=== PATIENT | male | born 1975 | race Caucasian/White ===

== ENCOUNTER 2024-02-13 09:43 | Outpatient (CLI) | payer BC, SELFPAY ==
--- NOTE | 2024-02-13 10:58 | CT_ITS ---
WS: [id number] LDCT LUNG CANCER SCREENING TECHNIQUE: Noncontrast CT of the chest with coronal and sagittal reformatted images. CLINICAL INFORMATION: HX OF TOBACCO USE COMPARISON: None. DLP: 100.58 mGy.cm DIvol: Mean CTDIvol: 2.20 (mGy) All CT scans at [facility] use at least one of these dose optimization techniques: automat ed exposure control; mA and/or kV adjustment per patient size (includes targeted exams where dose is matched to clinical indication); or iterative reconstruction. FINDINGS: 3 mm noncalcified nodule RIGHT middle lobe. 5 mm nodule RIGHT upper lobe along the fissure. Slight subsegmental atelectasis in the lung bases. 6.7 mm nodule in the lingula. No comparisons. Rec ommend 6-month follow-up. 5 mm nodule LEFT lower lobe. Additional 5 mm nodule LEFT lower lobe near the diaphragm. 4 mm nodule i n the LEFT fissure. 3 mm nodule RIGHT lower lobe laterally. Normal caliber thoracic aorta. No mediastinal or hilar lymphadenopathy. No axillary lymphadenopathy. Tiny esophageal hiatal hernia. Adrenal glands are normal. CT/CT lung screening [id number] IMPRESSION: 6.7 mm nodule in the lingula along the LEFT heart border. Recommend 6-month fol low-up. LUNG-RADS: 3-Probably Benign FOLLOW UP: 6 Month LDCT
== END 2024-02-13 09:44 | disposition home or self-care (01) ==
LOC: RAD 09:43
PROVIDERS: Family Provider Family Medicine; Visit Provider Family Medicine
DX: Z12.2 Encounter for screening for malignant neoplasm of respiratory organs (principal); R91.8 Other nonspecific abnormal finding of lung field; Z87.891 Personal history of nicotine dependence
CPT/HCPCS: 71271

== ENCOUNTER 2024-03-10 06:00 | Day surgery (SDC) | payer BC, SELFPAY ==
--- NOTE | 2024-03-09 16:32 | P.ANESASSM_ITS ---
Pre-Anesthetic Assessment Height/Weight: Height 5 ft 10 in Operation Date: 03/10/24 07:00 Proposed Procedures p Colonoscopy 06670, G0121, Z12.11(Not Applicable) - Santana Alvarado DO Anesthetic Plan Other: No prior issues with anesthesia Completed bowel prep History of hypertension on losartan?HCTZ test? Plan for MAC anesthetic Medications/Allergies Home Medications Medication Instructions Recorded Confirmed Last Taken Type ezetimibe 10 mg tablet 10 mg PO DAILY 02/02/24 03/08/24 03/07/24 History losartan 100 1 tab PO ONCE 02/02/24 03/08/24 03/07/24 History mg-hydrochlorothiazide 25 mg tablet varenicline 1 mg tablet (Chantix) 1 mg PO BID 02/02/24 03/08/24 03/08/24 History Allergies Allergy/AdvReac Type Severity Reaction Status Date / Time Penicillins Allergy Unknown Verified 03/08/24 09:13 [facility] Anesthesia Family History Family/Other Cancer breast, brain, lung Hypertension Diabetes Social History Smoking and tobacco/nicotine status: former use of tobacco/nicotine (2 months former) Alcohol intake: never Data Anesthesia Cardiac Studies: No Data to Display
[2024-03-10 06:15] VITALS: BP 129/89; PULSE 105; RESP 18; TEMP 36.9; O2SAT 96; BMI 31.5
[2024-03-10] MEDS: sodium chloride 0.9% 1,000 ML 30 ML IV (06:24)
--- NOTE | 2024-03-10 06:58 | P.HP_ITS ---
Providers/Chief Complaint Primary Care Provider: Danny Michaud DO Chief Complaint: Z12.11 History of Present Illness Porter Owen is a 48 year old male Review of Systems 2 General: Reports: 10 or more systems reviewed and unremarkable except in HPI and below Medications/Allergies Home Medications Medication Instructions Recorded Confirmed Last Taken Type ezetimibe 10 mg tablet 10 mg PO DAILY 02/02/24 03/08/24 03/09/24 History losartan 100 1 tab PO ONCE 02/02/24 03/08/24 03/09/24 History mg-hydrochlorothiazide 25 mg tablet varenicline 1 mg tablet (Chantix) 1 mg PO BID 02/02/24 03/08/24 03/09/24 History Allergies Allergy/AdvReac Type Severity Reaction Status Date / Time Penicillins Allergy Unknown Verified 03/08/24 09:13 PFSH Acute PFSH: Surgical History (Updated 03/10/24 @ 06:58 by Santana Alvarado DO) Hx of eye surgery right Family History Family/Other Cancer breast, brain, lung Hypertension Diabetes Social History Smoking and tobacco/nicotine status: former use of tobacco/nicotine (2 months former) Alcohol intake: never Vitals/I&O/Wt Last Vital Signs Temp 98.5 F 03/10/24 06:15 Pulse 105 H 03/10/24 06:15 Resp 18 03/10/24 06:15 BP 129/89 03/10/24 06:15 Pulse Ox 96 03/10/24 06:15 O2 Del Method Room Air 03/10/24 06:15 Weight last 48 hrs Weight 220 lb A&P Assessment and plan (1) Colon cancer screening: Plan Colonoscopy Attestations Medical Necessity Statement*: Home Coding Level of Care Code Acute Code for Chg Fwd Diagnoses Colon cancer screening Z12.11
--- NOTE | 2024-03-10 06:59 | P.ANESUD_ITS ---
Pre-Anesthetic Update Pre-Anesthetic Assessment: Date of Surgery/Procedure: 03/10/24 Preop Ilene gnosis: screening Proposed Procedure: Operation Date: 03/10/24 07:00 Proposed Procedures p Colonoscopy 82567, G0121, Z12.11(Not Applicable) - Santana Alvarado, DO Any changes to Pre-Anesthetic Assessment?: No Changes from Pre- Anesthetic Assessment: none. took BP meds last night Last Intake: Intake Last Liquid Date 03/09/24 Last Liquid Time 21:00 Last Solid Date 03/08/24 Last Solid Time 22:00 Vitals: Temperature 98.5 F 03/10/24 06:15 Temperature Source Temporal Artery S can 03/10/24 06:15 Pulse Rate 105 H 03/10/24 06:15 Respiratory Rate 18 03/10/24 06:15 Blood Pressure 129/89 03/10/24 06:15 Blood Pressure Ashley n 102 03/10/24 06:15 Pulse Oximetry 96 03/10/24 06:15 Oxygen Delivery Me thod Room Air 03/10/24 06:15 Exam: Pre-Anes Outpt Exam: alert and oriented x 3 Additional Exam Findings (including area of procedure): MP 4 Other Pertinent Information: Other Pertinent Information: quit smoking 3 months ago. states SOB at rest. Cardiac Studies: No Data to Display
[2024-03-10 07:22] VITALS: BP 109/80; PULSE 93; RESP 18; TEMP 36.4; O2SAT 94
[2024-03-10 07:45] VITALS: BP 132/84; PULSE 80; RESP 16; O2SAT 95
--- NOTE | 2024-03-10 09:12 | ANE.PACU2 ---
Inpatient post-anesthesia follow up: Airway intact: Yes Vital signs: Temperature 97.5 F Pulse Rate 80 Respiratory Rate 16 Blood Pressure 132/84 Pulse Oximetry 95 Oxygen Delivery Me thod Room Air Oxygen Flow Rate Fraction of Inspir ed Oxygen Hydration adequate: Yes Nausea and vomiting: No Pain level: 1 Mental status: Baseline
== END 2024-03-10 07:53 | disposition home or self-care (01) ==
PROVIDERS: Family Provider Family Medicine; Visit Provider Surgery
PROC: 0DJD8ZZ Inspection of Lower Intestinal Tract, Via Natural or Artificial Opening Endoscopic (ICD-10-PCS; CPT 45378; principal; 2024-03-10 07:00)
DX: Z12.11 Encounter for screening for malignant neoplasm of colon (principal); C7A.026 Malignant carcinoid tumor of the rectum; C7B.00 Secondary carcinoid tumors, unspecified site; Z87.891 Personal history of nicotine dependence; K62.89 Other specified diseases of anus and rectum; K57.30 Diverticulosis of large intestine without perforation or abscess without bleeding; D12.4 Benign neoplasm of descending colon; I10 Essential (primary) hypertension
CPT/HCPCS: 45380; 45385; 88305; 88342; J2704; J7030

== ENCOUNTER 2024-04-21 07:16 | Day surgery (SDC) | payer BC, SELFPAY ==
[2024-04-21 07:32] VITALS: BP 148/89; PULSE 88; RESP 17; TEMP 36.3; O2SAT 95; BMI 34.4
[2024-04-21] MEDS: sodium chloride 0.9% 500 ML 15 ML IV (07:38)
--- NOTE | 2024-04-21 07:43 | ANES.PREANE2 ---
Pre-Anesthetic Assessment Height/Weight: Height 1.78 m Weight 108.862 kg Temp Pulse Resp BP Pulse Ox O2 Del Method 97.4 F L 88 17 148/89 95 Room Air 04/21/24 07:32 04/21/24 07:32 04/21/24 07:32 04/21/24 07:32 04/21/24 07:32 04/21/24 07:32 Preop Diagnosis: Rectal tumor Operation Date: 04/21/24 08:30 Proposed Procedures p Sigmoidoscopy with flexible sigmoid 73033, 79624, D3A.026(Not Applicable) - Santana Alvarado DO Familial anesthetic complications: none Was Beta Morenita taken within 24 hours: N/A Was Clonidine taken within 24 hours: N/A Last intake: Intake Last Liquid Date 04/20/24 Last Liquid Time 23:00 Last Solid Date 04/19/24 Last Solid Time 20:00 Social No alcohol and No tobacco quit 4 months ago Exam alert, oriented x 3, clear to auscultation bilaterally and regular rate & rhythm Airway Submandibular: within normal limits Cervical ROM: within normal limits Mallampati: Class II Dentition: full History/ROS No significant history except as noted and No significant complaints Pulmonary Asthma, Exertional Dyspnea and Shortness of Breath CV/HEM Hypertension None reported Hepatic None reported GI Gastroesophageal Reflux Disease Metabolic None reported Musc/skel None reported Neuropsych None reported Anesthetic Plan ASA status: 3 Anesthesia: MAC Risk of > 500 ml blood loss (7ml/kg in children): No Medications/Allergies Home Medications Medication Instructions Recorded Confirmed Last Taken Type ezetimibe 10 mg tablet 10 mg PO DAILY 02/02/24 04/21/24 04/20/24 History losartan 100 1 tab PO DAILY 02/02/24 04/21/24 04/20/24 History mg-hydrochlorothiazide 25 mg tablet aspirin 81 mg capsule 81 mg PO DAILY 04/19/24 04/21/24 04/20/24 History Allergies Allergy/AdvReac Type Severity Reaction Status Date / Time Penicillins Allergy Unknown Verified 04/19/24 10:08 Current Medications Generic Name Dose Route Start Last Admin Trade Name Freq PRN Reason Stop Dose Admin Sodium Chloride 500 mls @ 15 mls/hr 04/21/24 07:24 04/21/24 07:38 Sodium Chloride 0.9% IV 04/22/24 07:23 15 mls/hr .Q24H PRN Administration COLONOSCOPY FLUIDS PFSH Anesthesia Surgical History Hx of eye surgery right Family History Family/Other Cancer breast, brain, lung Hypertension Diabetes Social History Smoking and tobacco/nicotine status: former use of tobacco/nicotine (2 months former) Alcohol intake: never Data Anesthesia Cardiac Studies: No Data to Display
--- NOTE | 2024-04-21 09:25 | W.PM.OPSUD ---
Surgery/Procedure H&P Update DATE OF PROCEDURE: April 21, 2024 DATE H&P PERFORMED: 03/22/24 H&P UPDATE INFORMATION: I have reviewed H&P completed within last 30 days, I have examined patient prior to procedure and No changes to prior documentation PREOP DIAGNOSIS: Rectal tumor PLANNED PROCEDURE: Operation Date: 04/21/24 08:30 Proposed Procedures p Sigmoidoscopy with flexible sigmoid 21235, 56494, D3A.026(Not Applicable) - Santana Alvarado DO
[2024-04-21 09:40] VITALS: BP 126/80; PULSE 85; RESP 18; TEMP 36.2; O2SAT 95
[2024-04-21 09:50] VITALS: BP 95/48; PULSE 78; RESP 18; O2SAT 95
[2024-04-21 10:00] VITALS: BP 145/72; PULSE 75; RESP 18; O2SAT 94
--- NOTE | 2024-04-21 10:09 | ANE.PACU2 ---
Inpatient post-anesthesia follow up: Airway intact: Yes Vital signs: Temperature 97.2 F Pulse Rate 75 Respiratory Rate 18 Blood Pressure 145/72 Pulse Oximetry 94 Oxygen Delivery Me thod Room Air Oxygen Flow Rate Fraction of Inspir ed Oxygen Hydration adequate: Yes Nausea and vomiting: No Pain level: 1 Mental status: Baseline
== END 2024-04-21 10:09 | disposition home or self-care (01) ==
PROVIDERS: PCP Family Medicine; Visit Provider Surgery
PROC: 0DJD8ZZ Inspection of Lower Intestinal Tract, Via Natural or Artificial Opening Endoscopic (ICD-10-PCS; CPT 45330; principal; 2024-04-21 08:30)
DX: D3A.026 Benign carcinoid tumor of the rectum (principal); I10 Essential (primary) hypertension; K21.9 Gastro-esophageal reflux disease without esophagitis; Z87.891 Personal history of nicotine dependence
CPT/HCPCS: 45338; 88305; J2704; J7040

== ENCOUNTER 2024-04-28 07:59 | Outpatient (CLI) | payer BC, SELFPAY | END 2024-04-28 08:00 | disposition home or self-care (01) | LOC: RT 08:00 | PROVIDERS: PCP Family Medicine; Visit Provider Family Medicine | DX: R06.09 Other forms of dyspnea (principal); R06.02 Shortness of breath | CPT/HCPCS: 94010; 94726; 94729 ==

== ENCOUNTER → 2024-07-28 13:39 | Outpatient (BNVA) | payer BC, SELFPAY | PROVIDERS: PCP Family Medicine; Visit Provider Internal Medicine Cardiovascular Disease | DX: R07.9 Chest pain, unspecified (principal) | CPT/HCPCS: 93005 ==

== ENCOUNTER 2024-08-06 11:46 | Outpatient (CLI) | payer BC, SELFPAY ==
[2024-08-06 12:01] VITALS: BMI 31.5
--- NOTE | 2024-08-06 12:05 | ECG_ITS ---
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 Baseline heart rate was 88 beats per minute. Baseline blood pressure was 140/84 millimeters of mercury. Target heart rate was 169 beats per minute. Maximum heart rate achieved was 165, which was 97% of the target heart rate. Maximum blood pressure was 177/84 millimeters of mercury. Total exercise time was 6 minutes. Maximum METs achieved was 7.0, maximum VO2 was 24.5. The reason for ending the test was maximum effort achieved. The patient complained of shortness of breath during the stress test, which then resolved at the end of the test. ELECTROCARDIOGRAM: BASELINE: Showed sinus rhythm, normal axis, incomplete right bundle branch block otherwise no significant ST-T changes at the baseline noted. EXERCISE: At the peak exercise level, no significant ST-T changes suggestive of ischemia noted. RECOVERY: During the recovery period, heart rate dropped appropriately. No significant ST-T changes in the recovery suggestive of ischemia noted. CONCLUSION: 1. Exercise capacity fair. 2. Heart rate response was tachycardic. 3. Blood pressure response was appropriate. 4. Symptoms not suggestive of ischemia. 5. Electrocardiogram portion of the stress test was not suggestive of ischemia, however due to underachievement of METS and low exercise capacity specificity and sensitivity of EKG portion of the stress test will be low. Electronically Signed On 08-15-2024 19:24:50 CDT by TONY ABARCA [email or web address]
[2024-08-06 12:41] VITALS: BP 136/68; PULSE 66
== END 2024-08-06 11:47 | disposition home or self-care (01) ==
PROVIDERS: PCP Family Medicine; Visit Provider Internal Medicine Cardiovascular Disease
DX: R07.9 Chest pain, unspecified (principal); R06.02 Shortness of breath; R00.0 Tachycardia, unspecified
CPT/HCPCS: 93017

== ENCOUNTER 2024-08-24 16:15 | Outpatient (CLI) | payer BC, SELFPAY ==
--- NOTE | 2024-08-24 16:18 | CTR_ITS ---
PROCEDURE INFORMATION: Exam: CT Chest Without Contrast; Diagnostic Exam date and time: 08/24/2024 4:24 PM Age: 49 years old Clinical indication: Abnormal findings; Abnormal radiologic exam of lung or chest; HX of colon cancer; Additional info: Multiple nodules of lung TECHNIQUE: Imaging protocol: Diagnostic computed tomography of the chest without contrast. Radiation optimization: All CT scans at this facility use at least one of these dose optimization techniques: automated exposure control; mA and/or kV adjustment per patient size (includes targeted exams where dose is matched to clinical indication); or iterative reconstruction. COMPARISON: CT lung screening [id number] 02/13/2024 11:03 AM RADIATION DOSE METRICS: Total DLP (mGy-cm): 568.52 FINDINGS: Lungs: Lungs are well aerated without a focal area of consolidation. Tiny nodular density within the middle lobe of 2 mm. Image 35 series 3. Pleural spaces: Unremarkable. No pneumothorax. No pleural effusion. Heart: Small amount of fluid within the superior pericardial recess. Coronary arteries: Minimal coronary calcifications Mediastinal space: Thoracic inlet is unremarkable. Lymph nodes: mediastinum is unremarkable other than a few small mediastinal lymph nodes. Vasculature: Calcification of the aorta. Origin of the great vessels including the innominate artery, the right common carotid artery, the subclavian arteries and the left common carotid artery are normal. Liver: Mild fatty infiltration of the liver. Bones/joints: Unremarkable. No acute fracture. Soft tissues: Soft tissues are unremarkable. CT/CT chest wo con [id number] IMPRESSION: 1. Lungs are well aerated without a focal area of consolidation. 2. Tiny nodular density within the middle lobe of 2 mm. Image 35 series 3. Nodular density within the left lower lobe posteriorly of approximately 5 mm. Previously noted. Nodular density within the left lower lobe inferiorly adjacent to the hemidiaphragm. 4 mm. Stable. Nodular density within the lingula adjacent to the left heart border. Previously noted. Stable. 5 mm. Nodular density within the right lower lobe laterally 2 mm. Stable.
== END 2024-08-24 16:16 | disposition home or self-care (01) ==
PROVIDERS: PCP Family Medicine; Visit Provider Family Medicine
DX: R91.8 Other nonspecific abnormal finding of lung field (principal); R59.0 Localized enlarged lymph nodes; I70.0 Atherosclerosis of aorta; K76.0 Fatty (change of) liver, not elsewhere classified
CPT/HCPCS: 71250